=== PATIENT | male | born 1930 | race Caucasian/White ===

== ENCOUNTER 2017-12-19 13:45 | Inpatient (IN) | payer OTHER ==
[~2017-12-19] VITALS: Ht 180.3 cm; Wt 62.2 kg
--- NOTE | ~2017-12-19 | EKG ---
[address] [address] ELECTROCARDIOGRAM REPORT Name: PENNY CALIX Room #: 205-P ADM IN M.R.#: [id number] Admission: 12/19/17 Attend Phys: Alex Madison MD Discharge: Date of : 30 Report #: [id number] THIS REPORT FOR: //name// [facility] Test Date: 2017-12-20 Test Time: 19:14:13 Pat Name: PENNY CALIX Department: Room: 205 P Gender: M Interventional Radiology Tech: Coral EWING : 1930 Requested By: Alex Madison Order Number: [id number] MD: Rishi Rutledge Measurements Intervals [employer] Rate: 82 P: 43 IA: 146 QRS: -51 QRSD: 96 T: 48 QT: 402 QTc: 470 Interpretive Statements Sinus rhythm Left anterior fascicular block Compared to ECG 05/12/2017 16:22:52 No significant changes Electronically Signed On 12-21-2017 8:42:47 CDT by Rishi Rutledge [email or web address] <ELECTRONICALLY SIGNED> By: Rishi Rutledge MD, [facility] 12/21/17 0842 13 13 Rishi Rutledge MD, [facility] /EPI
--- NOTE | ~2017-12-19 | 2DMMODE ---
[facility] [address] [address] 2 D/M-MODE ECHOCARDIOGRAM Name: PENNY CALIX Room #: 205-P ADM IN M.R.#: [id number] Admission: 12/19/17 Attend Phys: Alex Madison MD Discharge: Date of : 30 Date of Service: 12/21/17 1240 Report #: [id number] THIS REPORT FOR: //name// APPROVED REPORT Study performed: 12/21/2017 11:15:26 EXAM: Comprehensive 2D, Doppler, and color-flow Echocardiogram Patient Location: Bedside Room #: 205 Status: routine BSA: 1.71 HR: 93 bpm BP: 120/64 mmHg Other Information Study Quality: Adequate Indications CVA/TIA Atrial Fibrillation Hypertension/HDD 2D Dimensions IVC: 18.00 mm Volumes Left Atrial Volume (Systole) Single Plane 4CH: 35.92 mL Single Plane 2CH: 22.83 mL LA ESV Index: 19.00 mL/m2 Aortic Valve AoV Peak Félix.: 1.37 m/s AO Peak Gr.: 7.52 mmHg LVOT Max P.28 mmHg LVOT Max V: 0.91 m/s Mitral Valve E/A Ratio: 0.6 MV Decel. Time: 279.51 ms MV E Max Félix.: 0.66 m/s MV A Félix.: 1.03 m/s MV PHT: 81.06 ms IVRT: 147.64 ms Pulmonary Valve [facility] [address] [place] [address] 2 D/M-MODE ECHOCARDIOGRAM Name: PENNY CALIX Room #: 205-P ADM IN M.R.#: [id number] Admission: 12/19/17 Attend Phys: Alex Madison MD Discharge: Date of : 30 Date of Service: 12/21/17 1240 Report #: [id number] PV Peak Félix.: 0.97 m/s PV Peak Gr.: 3.75 mmHg Pulmonary Vein P Vein S: 0.46 m/s P Vein A: 0.44 m/s P Vein D: 0.34 m/s P Vein A Dur.: 138.4 msec P Vein S/D Ratio: 1.35 Tricuspid Valve TR Peak Félix.: 2.49 m/s TR Peak Gr.: 24.77 mmHg PA Pressure: 30.00 mmHg Left Ventricle The left ventricle is normal size. Regional wall motion is not well visualized but grossly normal. There is normal left ventricular wall thickness. The left ventricular systolic function is normal. The left ventricular ejection fraction is within the normal range. LVEF is 55-60%. Grade I - abnormal relaxation pattern. Right Ventricle The right ventricle is normal size. The right ventricular systolic function is normal. Atria The left atrium size is normal. No shunting by contrast bubble injection The right atrium size is normal. 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 Aortic Valve The aortic valve is grossly normal in structure. No aortic regurgitation is present. There is no aortic valvular stenosis. Mitral Valve Mild mitral annular calcification No mitral regurgitation. No evidence of mitral valve stenosis. Tricuspid Valve The tricuspid valve is normal in structure. There is mild tricuspid regurgitation. Estimated PAP 30 mmHg. There is no pulmonary hypertension. Pulmonic Valve The pulmonary valve is normal in structure. Trace pulmonic regurgitation. [facility] [address] [place] [address] 2 D/M-MODE ECHOCARDIOGRAM Name: PENNY CALIX Room #: 205-P ADM IN M.R.#: [id number] Admission: 12/19/17 Attend Phys: Alex Madison MD Discharge: Date of : 30 Date of Service: 12/21/17 1240 Report #: [id number] Great Vessels The aortic root is normal in size. IVC is normal in size and collapses >50% with inspiration. Pericardium There is no pericardial effusion. <Conclusion> The left ventricular systolic function is normal. Regional wall motion is not well visualized but grossly normal. LVEF is 55-60%. Mild diastolic dysfunction No shunting by contrast bubble injection The aortic valve is grossly normal in structure. No aortic regurgitation or stenosis Mild mitral annular calcification. No mitral regurgitation. There is mild tricuspid regurgitation. Estimated pulmonary artery pressure of 30 mmHg. There is no pericardial effusion. <ELECTRONICALLY SIGNED> By: Rishi Rutledge MD, FACC 12/21/17 [phone] Rishi Rutledge MD, FACC /INF
--- NOTE | ~2017-12-19 | HC ---
[facility] [place] [address] [place] [address] CONSULTATION Name: PENNY CALIX Room #: 205-P ADM IN M.R.#: [id number] Admission: 12/19/17 Attend Phys: Alex Madison MD Discharge: Date of : 30 Report #: [id number] THIS REPORT FOR: //name// CC: Denis Madison REASON FOR CONSULTATION: Tachycardia. HISTORY OF PRESENT ILLNESS: The patient is an 87-year-old gentleman with a history of hypertension and dementia. He is admitted with altered mental status and confusion. During his hospitalization, he has been agitated and very confused. Telemetry monitoring suggested a narrow complex tachycardia. There is so much artifact that I cannot tell what the underlying rhythm is. There are periods it looked like this may be sinus tachycardia, possibly in the setting of severe agitation. No 12-lead has been performed other than after he received intravenous Cardizem, this demonstrated a sinus rhythm and was an otherwise normal tracing. MEDICATIONS: Reported medicines include atorvastatin, lisinopril 2.5 mg daily and an aspirin. PAST MEDICAL HISTORY: Lists paroxysmal atrial fibrillation, hypertension, chronic kidney disease, cholelithiasis. SOCIAL HISTORY, FAMILY HISTORY AND REVIEW OF SYSTEMS: Not obtainable. PHYSICAL EXAMINATION: GENERAL: Reveals a confused elderly gentleman who is arousable, although will not specifically answer questions. VITAL SIGNS: Blood pressure is 111/52, heart rate of 82 and regular. He is afebrile, 5 feet 11 inches tall, 125 pounds. HEENT: There are neither xanthelasma, subcutaneous xanthomata, oral mucosal or digital cyanosis or kyphoscoliosis present. CHEST: Clear to auscultation and percussion. CARDIAC: Reveals a regular rate and rhythm with normal S1, S2. ABDOMEN: Soft and nontender. EXTREMITIES: Without cyanosis, clubbing or edema. Radial pulses are 2+. NEUROLOGIC: He is alert. LABORATORY DATA: Sodium 141, potassium 4.4, creatinine 1.4. Troponin of 0. White count 14.5, hemoglobin 11, hematocrit 40. Chest x-ray is normal. IMPRESSION: 1. Tachycardia of uncertain mechanism. 2. Dementia with agitation. 3. Hypertension. [facility] [address] [place] [address] CONSULTATION Name: PENNY CALIX Room #: 205-P ADM IN M.R.#: [id number] Admission: 12/19/17 Attend Phys: Alex Madison MD Discharge: Date of : 30 Report #: [id number] RECOMMENDATIONS: 1. Change from intravenous to oral Cardizem. 2. For recurrent tachycardia, I would recommend a 12-lead electrocardiogram. I am not convinced that atrial fibrillation has been present during this hospital stay. Thank you for asking me to participate in his care. <ELECTRONICALLY SIGNED> By: Rishi Rutledge MD, [facility] 12/22/17 0838 [id number] [id number] Rishi Rutledge MD, FACC /nt
--- NOTE | ~2017-12-19 | HC ---
[facility] [place] [place] [address] CONSULTATION Name: PENNY CALXI Room #: 205-P ADM IN M.R.#: [id number] Admission: 12/19/17 Attend Phys: Alex Madison MD Discharge: Date of : 30 Report #: [id number] THIS REPORT FOR: //name// CC: Denis Madison REASON FOR CONSULTATION: I was asked to evaluate concerning urinary tract infection in the setting of encephalopathy. HISTORY OF PRESENT ILLNESS: The patient was an 87-year-old with history of dementia, hypertension, presented on 12/19/2017 from senior care with confusion. Initial workup failed to identify any infectious etiology. CT scan of the head did not show any acute changes. He has had no fever, chills or sweats. Initial urinalysis was unremarkable. Repeat study 2 days later did show some pyuria, few bacteria with urine culture showing Aerococcus. He has been treated with ceftriaxone. No great improvement in his neurologic status. Actually today he was more encephalopathic. No other cardiopulmonary, GI issues. He has been voiding reasonably well without catheter, although he is incontinent. ALLERGIES: None. MEDICATIONS: As noted on his MAR including ceftriaxone. Also on metoprolol, diltiazem, lisinopril, atorvastatin, enoxaparin, aspirin. PAST MEDICAL HISTORY: Atrial fibrillation, hypertension, hyperlipidemia, hypothyroidism, chronic kidney disease, urinary incontinence, tonsillectomy, prostatectomy, cholelithiasis, right shoulder surgery, hard of hearing. FAMILY HISTORY: Noncontributory. SOCIAL HISTORY: Nonsmoker. No significant alcohol intake. REVIEW OF SYSTEMS: The patient was unable to give any details. PHYSICAL EXAMINATION: VITAL SIGNS: Afebrile, hemodynamically stable. GENERAL: He was arousable, but not conversant. Would not follow commands. After stimulation, he would drift back off to sleep. HEENT: Unremarkable. Increased muscle tone throughout. NECK: Otherwise, supple, no adenopathy. LUNGS: Clear. HEART: Irregular. No appreciable murmur, gallop or rub. ABDOMEN: Soft, nontender, no hepatosplenomegaly or mass. GENITOURINARY: External genitalia unremarkable. RECTAL: Not performed. He had no decubiti. EXTREMITIES: Unremarkable. [facility] [address] [place] [address] CONSULTATION Name: PENNY CALIX Room #: 205-P ADM IN M.R.#: [id number] Admission: 12/19/17 Attend Phys: Alex Madison MD Discharge: Date of : 30 Report #: [id number] NEUROLOGIC: Nonfocal, although he had generalized weakness and increased muscle tone. LABORATORY STUDIES: Sodium 139, potassium 3.7, bicarbonate 30, creatinine 0.7, AST 42. Liver function test normal. Otherwise, hemoglobin 12.5, WBC 8.7, platelet count 185,000. Blood cultures from today are pending. Sensitivity reports not performed on Aerococcus from the urine. These are typically sensitive to penicillin. CT scan of the head on December 23 showed atrophic changes, left sphenoid sinus and bilateral mastoid air cell fluid. IMPRESSION: Aerococcus involvement of the bladder. I am suspecting this may be more of a contaminant. I would like to repeat his urine studies. Change in his mental status concerned about primary central nervous system disease. With the fluctuating nature, unlikely to be infection considering no leukocytosis or fever. He does have what appears to be chronic sinus disease. Would like to treat his sinusitis more aggressively. RECOMMENDATIONS: We will continue antibiotic coverage. Repeat urine studies. Would consider MRI scan and EEG for further evaluation. If no other etiology identified, would pursue lumbar puncture. May wish Neurology evaluation. Avoid any sedatives. <ELECTRONICALLY SIGNED> By: Elias He MD 12/27/17 1737 0924 1343 Elias He MD /nt
--- NOTE | ~2017-12-19 | EEG ---
[facility] [place] [address] [place] [address] ELECTROENCEPHALOGRAM Name: PENNY CALIX Room #: 205-P [facility] IN M.R.#: [id number] Admission: 12/19/17 Attend Phys: Alex Madison MD Discharge: Date of : 30 Report #: [id number] THIS REPORT FOR: //name// CC: Denis Madison DATE OF SERVICE: 12/27/2017 This patient is being evaluated for altered mental status. EEG was done by placing the electrodes by standard 10-20 system of electrode placement. Both referential and sequential montages were used for recording. Background activity in this patient is about 9-10 Hz. However, the background activity is intermixed with theta range slowing on both sides. The patient's EEG does fluctuate and part of it does demonstrate slowing that may be sleep, but it is difficult to tell because apparently the patient is not responsive. Photic stimulation is unremarkable. IMPRESSION: Moderately abnormal EEG because it is intermixed with theta range slowing on both sides. That is a nonspecific abnormality, which can occur with dementia, encephalopathy, effect of psychotropic medication, etc. Clinical correlation is recommended. <ELECTRONICALLY SIGNED> By: Tl Roa MD 12/29/17 1225 1151 1205 Tl Roa MD /nt
[~2017-12-19 13:45] MED LIST: ASPIRIN325 PO; LIPITOR 20 MG T20 M1 PO; LISINOPRIL5 MG PO; TYLENOL325 MG PO; XARELTO10 MG PO
[2017-12-19 13:50] VITALS: BP 114/56
[2017-12-19] MEDS ORDERED: ACIDOPHILUS1 EAC3 PO (13:56)
[2017-12-19] MEDS ORDERED: LISINOPRIL2.5 MG PO (13:57)
[2017-12-19] MEDS ORDERED: REMERON15 MG PO (13:57)
[2017-12-19] MEDS ORDERED: ASPIRIN325 PO (13:58)
[2017-12-19] MEDS ORDERED: TUMS PO (13:59)
[2017-12-19 14:13] LABS: ABSOLUTE NEUTROPHILS 6.1 thou/uL (1.4-8.2); BASOPHILS 0.9 % (0.0-2.0); EOSINOPHILS 4.1 % (0.0-3.0); HEMATOCRIT 38.8 % (42.0-52.0); HEMOGLOBIN 12.8 gm/dL (14.0-18.0); LYMPHOCYTES 21.8 % (24.0-44.0); MCH 30.6 pg (26.0-34.0); MCV 92.8 fL (80.0-100.0); MONOCYTES 8.1 % (1.0-8.0); PLATELET COUNT 200 thou/uL (150-400); POLYS 65.1 % (36.0-66.0); RBC 4.18 mil/uL (4.50-6.00); RDW 14.9 % (10.5-14.5); WBC 9.3 thou/uL (4.0-11.0)
[2017-12-19 14:29] LABS: CALCIUM 8.6 mg/dL (8.5-10.1); CREATININE 1.2 mg/dL (0.7-1.3); POTASSIUM 4.3 mmol/L (3.5-5.1)
[2017-12-19 15:18] LABS: URINE BILIRUBIN NEGATIVE (Negative); URINE BLOOD NEGATIVE (Negative); URINE CLARITY CLEAR; URINE COLOR YELLOW; URINE GLUCOSE-RANDOM* NEGATIVE (Negative); URINE KETONES NEGATIVE (Negative); URINE LEUKOCYTES-REFLEX NEGATIVE (Negative); URINE NITRITE-REFLEX NEGATIVE (Negative); URINE PROTEIN (DIPSTICK) NEGATIVE (Negative); URINE SPECIFIC GRAVITY 1.025 (1.005-1.035); URINE UROBILINOGEN 0.2 E.U./dl (0.2-1.0)
[2017-12-19 16:26] VITALS: BP 116/54
[2017-12-19 17:30] VITALS: BP 116/54
[2017-12-19 19:42] VITALS: BP 130/74
[2017-12-20 04:10] LABS: HEMATOCRIT 39.1 % (42.0-52.0); HEMOGLOBIN 12.9 gm/dL (14.0-18.0); MCH 30.7 pg (26.0-34.0); MCHC 33.1 g/dL (28.0-37.0); MCV 92.7 fL (80.0-100.0); RBC 4.22 mil/uL (4.50-6.00); RDW 14.7 % (10.5-14.5); WBC 9.4 thou/uL (4.0-11.0)
[2017-12-20 04:17] LABS: CALCIUM 8.9 mg/dL (8.5-10.1); CREATININE 0.9 mg/dL (0.7-1.3); POTASSIUM 4.1 mmol/L (3.5-5.1)
[2017-12-20 04:29] VITALS: BP 159/78
[2017-12-20 08:00] VITALS: BP 168/90
[2017-12-20 18:10] VITALS: BP 87/50
[2017-12-20 19:52] VITALS: BP 129/61
[2017-12-20 23:15] VITALS: BP 134/79
[2017-12-21] VITALS (8 sets, daily range): BP systolic 105–121; BP diastolic 47–64
[2017-12-21 04:20] LABS: HEMATOCRIT 40.7 % (42.0-52.0); HEMOGLOBIN 13.1 gm/dL (14.0-18.0); MCHC 32.2 g/dL (28.0-37.0); RBC 4.37 mil/uL (4.50-6.00); RDW 14.6 % (10.5-14.5); WBC 14.5 thou/uL (4.0-11.0)
[2017-12-21 04:27] LABS: CALCIUM 9.1 mg/dL (8.5-10.1); CREATININE 1.4 mg/dL (0.7-1.3); POTASSIUM 4.4 mmol/L (3.5-5.1)
[2017-12-21 13:09] LABS: URINE BILIRUBIN NEGATIVE (Negative); URINE BLOOD 1+ (Negative); URINE CLARITY CLEAR; URINE COLOR YELLOW; URINE GLUCOSE-RANDOM* NEGATIVE (Negative); URINE KETONES 1+ (Negative); URINE LEUKOCYTES-REFLEX 1+ (Negative); URINE NITRITE-REFLEX NEGATIVE (Negative); URINE PROTEIN (DIPSTICK) NEGATIVE (Negative); URINE SPECIFIC GRAVITY 1.025 (1.005-1.035); URINE UROBILINOGEN 0.2 E.U./dl (0.2-1.0)
[2017-12-21 13:26] LABS: BACTERIA-REFLEX 1-9 Few /HPF (None Seen); MUCUS 0-3 Light strn/LPF (None Seen); SQUAMOUS 0-3 Few /LPF (0-3); URINE RBC 0-2 Rare /HPF (0-2); WBC CLUMPS Few (None Seen)
[2017-12-21 13:27] LABS: AMORPHOUS URATES Few /LPF (None Seen)
[2017-12-22 02:54] LABS: HEMATOCRIT 39.8 % (42.0-52.0); HEMOGLOBIN 12.7 gm/dL (14.0-18.0); MCV 93.9 fL (80.0-100.0); RBC 4.24 mil/uL (4.50-6.00); RDW 14.6 % (10.5-14.5); WBC 13.4 thou/uL (4.0-11.0)
[2017-12-22 03:06] LABS: CALCIUM 9.2 mg/dL (8.5-10.1); CREATININE 1.2 mg/dL (0.7-1.3); POTASSIUM 4.7 mmol/L (3.5-5.1)
[2017-12-22 05:56] VITALS: BP 110/71
[2017-12-22 08:08] VITALS: BP 153/67
[2017-12-22 11:36] VITALS: BP 140/72
[2017-12-22 15:23] VITALS: BP 104/53
[2017-12-22 19:42] VITALS: BP 142/56
[2017-12-22 23:47] VITALS: BP 125/57
[2017-12-23 03:26] VITALS: BP 115/59
[2017-12-23 03:57] LABS: HEMATOCRIT 35.1 % (42.0-52.0); HEMOGLOBIN 11.6 gm/dL (14.0-18.0); MCH 30.9 pg (26.0-34.0); MCHC 33.1 g/dL (28.0-37.0); MCV 93.2 fL (80.0-100.0); RBC 3.77 mil/uL (4.50-6.00); RDW 14.2 % (10.5-14.5); WBC 11.8 thou/uL (4.0-11.0)
[2017-12-23 04:24] LABS: CALCIUM 8.3 mg/dL (8.5-10.1); CREATININE 0.8 mg/dL (0.7-1.3); POTASSIUM 3.6 mmol/L (3.5-5.1)
[2017-12-23 09:26] VITALS: BP 142/69
[2017-12-23 12:50] VITALS: BP 131/65
[2017-12-23 16:43] VITALS: BP 148/62
[2017-12-23 19:20] VITALS: BP 133/56
[2017-12-24 04:55] VITALS: BP 133/62
[2017-12-24 07:40] VITALS: BP 147/77
[2017-12-24 11:00] VITALS: BP 143/84
[2017-12-24 16:00] VITALS: BP 129/69
[2017-12-24 19:12] VITALS: BP 133/66
[2017-12-25 04:35] LABS: HEMATOCRIT 35.9 % (42.0-52.0); HEMOGLOBIN 11.7 gm/dL (14.0-18.0); MCH 30.7 pg (26.0-34.0); MCHC 32.6 g/dL (28.0-37.0); MCV 94.2 fL (80.0-100.0); RBC 3.81 mil/uL (4.50-6.00); RDW 14.5 % (10.5-14.5); WBC 9.2 thou/uL (4.0-11.0)
[2017-12-25 04:45] LABS: CALCIUM 8.5 mg/dL (8.5-10.1); CREATININE 0.7 mg/dL (0.7-1.3); POTASSIUM 3.7 mmol/L (3.5-5.1)
[2017-12-25 05:36] VITALS: BP 128/66
[2017-12-25 08:16] VITALS: BP 123/61
[2017-12-25 11:39] VITALS: BP 123/65
[2017-12-25] MEDS ORDERED: CARDIZEM CD 18180 M3 PO (13:09)
[2017-12-25] MEDS ORDERED: ASPIR 8181 MG PO (13:09)
[2017-12-25] MEDS ORDERED: EAR DROPS15 ML OTIC (13:10)
[2017-12-25] MEDS ORDERED: CEFPODOXIME PR200 M1 PO (13:21)
[2017-12-25 16:00] VITALS: BP 135/73
[2017-12-25 19:20] VITALS: BP 125/58
[2017-12-26 04:54] VITALS: BP 150/84
[2017-12-26 08:00] VITALS: BP 150/71
[2017-12-26 12:00] VITALS: BP 147/78
[2017-12-26 12:05] LABS: HEMATOCRIT 37.6 % (42.0-52.0); HEMOGLOBIN 12.5 gm/dL (14.0-18.0); MCH 30.8 pg (26.0-34.0); MCHC 33.2 g/dL (28.0-37.0); MCV 92.9 fL (80.0-100.0); RBC 4.04 mil/uL (4.50-6.00); RDW 14.1 % (10.5-14.5); WBC 8.7 thou/uL (4.0-11.0)
[2017-12-26 12:23] LABS: ALBUMIN 2.5 g/dL (3.4-5.0); CALCIUM 8.9 mg/dL (8.5-10.1); CREATININE 0.7 mg/dL (0.7-1.3); MAGNESIUM 1.7 mg/dL (1.8-2.4); POTASSIUM 3.7 mmol/L (3.5-5.1); TOTAL BILIRUBIN 0.4 mg/dL (<0.1-1.0); TOTAL PROTEIN 6.3 g/dL (6.4-8.2)
[2017-12-26 16:00] VITALS: BP 131/76
[2017-12-26 20:10] VITALS: BP 125/64
[2017-12-27 05:32] VITALS: BP 121/59
[2017-12-27 07:19] VITALS: BP 144/68
[2017-12-27 09:49] LABS: HEMATOCRIT 37.4 % (42.0-52.0); HEMOGLOBIN 12.2 gm/dL (14.0-18.0); MCH 30.3 pg (26.0-34.0); MCHC 32.6 g/dL (28.0-37.0); MCV 92.9 fL (80.0-100.0); RBC 4.02 mil/uL (4.50-6.00); RDW 14.5 % (10.5-14.5); WBC 8.9 thou/uL (4.0-11.0)
[2017-12-27 09:56] LABS: ALBUMIN 2.3 g/dL (3.4-5.0); CALCIUM 8.6 mg/dL (8.5-10.1); CREATININE 0.7 mg/dL (0.7-1.3); MAGNESIUM 1.7 mg/dL (1.8-2.4); POTASSIUM 3.7 mmol/L (3.5-5.1); TOTAL BILIRUBIN 0.3 mg/dL (<0.1-1.0); TOTAL PROTEIN 5.9 g/dL (6.4-8.2)
[2017-12-27 10:26] LABS: URINE BILIRUBIN NEGATIVE (Negative); URINE BLOOD 2+ (Negative); URINE CLARITY CLEAR; URINE COLOR YELLOW; URINE GLUCOSE-RANDOM* NEGATIVE (Negative); URINE KETONES NEGATIVE (Negative); URINE LEUKOCYTES-REFLEX NEGATIVE (Negative); URINE NITRITE-REFLEX NEGATIVE (Negative); URINE PROTEIN (DIPSTICK) NEGATIVE (Negative); URINE UROBILINOGEN 0.2 E.U./dl (0.2-1.0)
[2017-12-27 10:42] LABS: CASTS None Seen /LPF (None Seen); CRYSTALS None Seen /LPF (None Seen); SQUAMOUS None Seen /LPF (0-3); URINE WBC-REFLEX 0-5 Rare /HPF (0-5)
[2017-12-27 10:43] LABS: BACTERIA-REFLEX 1-9 Few /HPF (None Seen); URINE RBC >20 Many /HPF (0-2)
[2017-12-27 11:10] LABS: TSH 2.368 uIU/mL (0.358-3.740)
[2017-12-27 15:18] VITALS: BP 130/66
[2017-12-27 19:30] VITALS: BP 123/61
[2017-12-28 04:29] VITALS: BP 136/71
[2017-12-28 07:32] VITALS: BP 129/61
[2017-12-28 11:20] VITALS: BP 115/49
[2017-12-28 15:22] VITALS: BP 113/58
[2017-12-28 19:52] VITALS: BP 114/60
[2017-12-29 04:06] VITALS: BP 93/50
[2017-12-29 07:22] VITALS: BP 117/60
[2017-12-29 11:16] VITALS: BP 103/45
[2017-12-29] MEDS ORDERED: AMOXIL 875 MG875 M1 PO (13:57)
[2017-12-29] MEDS ORDERED: ERGOCALCIF50000 UNIT PO (14:32)
[2017-12-29 15:37] VITALS: BP 113/62
== END 2017-12-29 17:30 | DRG 70 ==
LOC: ER 13:45 → 2N 15:55 → 4W 15:55 → EROBS 15:55 → 4W 17:24 → 2N 12-20 17:59
PROVIDERS: Emergency Medicine; Hospitalist; Internal Medicine; Psychiatry & Neurology Neurology
DX: G93.49 Other encephalopathy (principal); N17.0 Acute kidney failure with tubular necrosis; N39.0 Urinary tract infection, site not specified; F03.91 Unspecified dementia, unspecified severity, with behavioral disturbance; R56.9 Unspecified convulsions; I12.9 Hypertensive chronic kidney disease with stage 1 through stage 4 chronic kidney disease, or unspecified chronic kidney disease; E78.5 Hyperlipidemia, unspecified; E03.9 Hypothyroidism, unspecified; N18.3 Chronic kidney disease, stage 3 (moderate); H70.90 Unspecified mastoiditis, unspecified ear; E55.9 Vitamin D deficiency, unspecified; I48.0 Paroxysmal atrial fibrillation; H91.90 Unspecified hearing loss, unspecified ear; Z90.79 Acquired absence of other genital organ(s); Z79.82 Long term (current) use of aspirin; Z79.899 Other long term (current) drug therapy; Z90.49 Acquired absence of other specified parts of digestive tract
CPT/HCPCS: 10045; 10081